=== PATIENT | female | born 1990 | race Caucasian/White ===

== ENCOUNTER 2018-02-22 21:41 | Emergency (ER) | payer SELFPAY ==
[~2018-02-22] VITALS: Ht 134.6 cm; Wt 63.5 kg
[2018-02-23 02:02] VITALS: BP 116/72
== END 2018-02-23 02:02 | disposition home or self-care (01) ==
LOC: ED 21:41
DX: F10.10 Alcohol abuse, uncomplicated (principal); Z59.0 Homelessness
CPT/HCPCS: 82962